=== PATIENT | female | born 1980 | race Caucasian/White ===

== ENCOUNTER 2018-10-16 07:48 | Inpatient (IN) | payer BC ==
[2018-10-16] MEDS ORDERED: Buffered Lidocaine 1% SYRIN* 1 ML/SYRINGE INTRADERM ONE (08:11)
[2018-10-16] MEDS ORDERED: Lactated Ringers 1000 ML Bag* 1,000 ML IV ONE ×2 (08:11→14:12)
[2018-10-16 08:59] LABS: ABS Eosinophils 0.1 10^3/ul (0-0.6); ABS Lymphocytes 1.3 10^3/ul (1.0-4.8); ABS Monocytes 0.5 10^3/ul (0-0.8); ABS Neutrophils 6.3 10^3/ul (1.5-7.7); Eosinophil % 0.7 %; Hematocrit 35 % (35-47); Hemoglobin 12.1 g/dL (12.0-16.0); Lymphocyte % 15.9 %; Mean Corpuscular HGB Conc 34 g/dL (31-36); Mean Corpuscular Hemoglobin 28 pg (27-31); Mean Corpuscular Volume 80 fL (80-97); Mean Platelet Volume 9.9 fL (7.4-10.4); Nucleated Red Blood Cells % 0.1; Platelet Count 153 10^3/uL (150-450); Red Blood Count 4.39 10^6 /uL (3.70-4.87); Red Cell Distribution Width 17 % (10-15); White Blood Count 8.2 10^3/uL (3.5-10.8)
[2018-10-16] MEDS ORDERED: Lactated Ringers 1000 ML Bag* 1,000 ML IV SCH ×3 (09:00→23:45)
[2018-10-16] MEDS ORDERED: Oxytocin in LR* 20 UNITS/1,000 ML BAG IVPB SCH ×2 (09:00→23:45)
[2018-10-16 09:22] LABS: Urine Benzodiazepine Screen None Detected (None Detect); Urine Opiates Screen None Detected (None Detect)
[2018-10-16] MEDS ORDERED: Penicillin G Potassium IV* 5,000,000 UNITS in NS 0.9% 100 ML* 100 ML IVPB ONE (10:23)
--- NOTE | 2018-10-16 10:30 | HP ---
General Information - Reason for Visit preeclampsia / twins 37 weeks - General Information Maternal Age: 38 Grav: 3 Para: 0 SAB: 2 IEA: 0 Estimated Due Date: 11/06/18 Determined By: Early Ultrasound Maternal Blood Type and Rh: O Positive - Results this Serology/RPR Result: Non-Reactive Rubella Result: Non-Immune HBsAg Result: Negative HIV Result: Negative GBS Culture Result: Positive Past Medical History Delivery History: See Records Pertinent Past Medical History: See Records - hx of latent TB Pertinent Past Surgical History: See Records Pertinent Family History: Non-Contributory - Antepartal Records Antepartal Records: Reviewed, Complicated by: - mild preeclampsia since late August Review of Systems Constitutional: Comfortable CV Complaint: No Respiratory: Shortness of Breath: No Gastrointestinal: No Nausea/Vomiting Genitourinary: No Bleeding, No Leaking Fluid Musculoskeletal: Pressure Neurological: No Headache Movement: Normal Exam Allergies/Adverse Reactions: Allergies shellfish derived Allergy (Verified 10/16/18 08:37) Anaphylatic Shock Lab Values - Entire Visit: Laboratory Tests 10/16/18 10/16/18 10/16/18 08:41 08:41 08:41 WBC 8.2 RBC 4.39 Hgb 12.1 Hct 35 MCV 80 MCH 28 MCHC 34 RDW 17 H Plt Count 153 MPV 9.9 Neut % (Auto) 76.9 Lymph % (Auto) 15.9 [place] % (Auto) 6.0 Eos % (Auto) 0.7 Baso % (Auto) 0.5 Absolute Neuts (auto) 6.3 Absolute Lymphs (auto) 1.3 Absolute Monos (auto) 0.5 Absolute Eos (auto) 0.1 Absolute Basos (auto) 0.0 Absolute Nucleated RBC 0.0 Nucleated RBC % 0.1 Urine Opiates Screen None detected Ur Barbiturates Screen None detected Ur Phencyclidine Scrn None detected Ur Amphetamines Screen None detected U Benzodiazepines Scrn None detected Urine Cocaine Screen None detected U Cannabinoids Screen None detected Blood Type O Positive - Measurements Height: 5 ft 11.5 in Weight: 304 lb Weight in lbs: 304.808442 Body Mass Index (BMI): 41.8 Pre- Weight: 265 lb Weight Gained This : 39 lbs and 0 ozs - Exam Breast: Breast Exam Deferred Extremities: No Edema Heart: Normal Rhythm/Heart Sounds HEENT: No Significant Findings Lungs: Clear Bilaterally Rectal: Rectal Exam Deferred Reflexes: DTR 2+ Targeted Exam Findings Cervical Exam: 1cm Effacement: 80% Station: -1 Presenting Part: Vertex - B vertex by sono Membrane Status: AROM Amniotic Fluid Evaluation: Gross Rupture EFM Findings - External Monitor Findings External Monitor Findings: Accelerations Present, Variability Moderate Contractions: Irregular, Mild Assessment/Plan - Assessment twinns vtx/ vtx with mild preeclampsia at 37 weeks for induction of labor. process discussed. option of arom and pitocin discussed . questions answered. - Obstetrical Risk Factors Obstetrical Risk Factors: GBS Positive, Proteinuria, PreEclampsia - Plan Plan: Induction, Admit - Anticipate Vaginal Delivery
--- NOTE | 2018-10-16 13:06 | PN ---
Progress Note - Progress Note Date of Service: 10/16/18 Note: pt would like an epidural explained usefulness in twin delivery 2cm /90% / -1 / well engaged
[2018-10-16] MEDS ORDERED: OBEPIDURAL* 250 ML EPIDURAL ONE (13:10)
[2018-10-16] MEDS ORDERED: Sodium Citrate/Citric Acid* 15 ML UDC PO PRN (14:12)
[2018-10-16] MEDS ORDERED: Famotidine TAB* 20 MG PO PRN (14:12)
[2018-10-16] MEDS ORDERED: Lactated Ringers 1000 ML Bag* 500 ML IV PRN ×2 (14:12)
[2018-10-16] MEDS ORDERED: Phenylephrine 40 MCG/ML SYRINGE IV PUSH PRN ×2 (14:12)
[2018-10-16] MEDS ORDERED: OBEPIDURAL* 250 ML EPIDURAL SCH (15:00)
[2018-10-16] MEDS: Penicillin G Potassium IV* 2,500,000 UNITS in NS 0.9% 100 ML* 100 ML IVPB SCH ×2 (15:24→19:20)
[2018-10-16] MEDS ORDERED: Dibucaine 1% 28.35 GM TUBE PR PRN (23:17)
[2018-10-16] MEDS ORDERED: Glycerin ADULT SUPP PR PRN (23:17)
[2018-10-16] MEDS ORDERED: Misoprostol TAB* 200 MCG PR ONE (23:17)
[2018-10-16] MEDS ORDERED: Witch Hazel PAD* JAR TOPICAL PRN (23:17)
[2018-10-16] MEDS ORDERED: Measles, Mumps,Rubella VACC* 0.5 ML/VIAL SUBCUT ONE (23:24)
[2018-10-16] MEDS ORDERED: Lidocaine 1% INJ* 10 MG/ML 30 ML SDV ONE (23:25)
[2018-10-17] MEDS: Penicillin G Potassium IV* 2,500,000 UNITS in NS 0.9% 100 ML* 100 ML IVPB SCH (00:22)
[2018-10-17] MEDS: Acetaminophen TAB* 325 MG PO PRN ×3 (00:46→23:23)
[2018-10-17] MEDS: Ibuprofen TAB* 600 MG PO PRN ×4 (00:46→20:21)
[2018-10-17 06:34] LABS: ABS Basophils 0.1 10^3/ul (0-0.2); ABS Lymphocytes 1.2 10^3/ul (1.0-4.8); ABS Monocytes 0.9 10^3/ul (0-0.8); ABS Neutrophils 13.8 10^3/ul (1.5-7.7); Eosinophil % 0.1 %; Hematocrit 26 % (35-47); Hemoglobin 8.8 g/dL (12.0-16.0); Lymphocyte % 7.5 %; Mean Corpuscular HGB Conc 34 g/dL (31-36); Mean Corpuscular Hemoglobin 27 pg (27-31); Mean Corpuscular Volume 80 fL (80-97); Mean Platelet Volume 10.3 fL (7.4-10.4); Platelet Count 113 10^3/uL (150-450); Red Cell Distribution Width 16 % (10-15); White Blood Count 15.9 10^3/uL (3.5-10.8)
[2018-10-17] MEDS ORDERED: Simethicone TAB* 80 MG TAB.CHEW PO SCH (08:30)
[2018-10-17] MEDS: Ferrous Gluconate TAB* 324 MG TAB PO SCH ×2 (10:10→20:21)
[2018-10-17] MEDS: Docusate CAP* 100 MG PO SCH ×3 (10:10→20:21)
--- NOTE | 2018-10-17 10:23 | PN ---
Progress Note - Progress Note Date of Service: 10/17/18 - PPD#1 s/p twin vaginal delivery Note: Patient is PPD#1 s/p twin vertex, vertex vaginal delivery with 2nd degree vaginal laceration. She was induced at 37 weeks for mild preeclampsia. She feels well. She is tolerating regular diet. She is voiding and had Bowel movement without difficulty. Her vaginal bleeding has slowed. Her pain is well controlled. Vital Signs: Temp Pulse Resp BP Pulse Ox 97.7 F 63 17 122/74 98 10/17/18 08:04 10/17/18 08:04 10/17/18 08:24 10/17/18 08:04 10/17/18 08:04 Fundus firm, nontender lochia normal extremities 1+edema, nontender Laboratory Results - last 24 hr 10/16/18 10/17/18 08:41 06:25 WBC 15.9 H RBC 3.30 L Hgb 8.8 L Hct 26 L MCV 80 MCH 27 MCHC 34 RDW 16 H Plt Count 113 L MPV 10.3 Neut % (Auto) 86.4 Lymph % (Auto) 7.5 Page % (Auto) 5.5 Eos % (Auto) 0.1 Baso % (Auto) 0.5 Absolute Neuts (auto) 13.8 H Absolute Lymphs (auto) 1.2 Absolute Monos (auto) 0.9 H Absolute Eos (auto) 0.0 Absolute Basos (auto) 0.1 Absolute Nucleated RBC 0.0 Nucleated RBC % 0.0 Antibody Screen Negative Assessment: PPD#1 s/p twin vaginal delivery, mild anemia, maternal blood type Rh positive Plan: continue supportive care, iron supplementation. Maricarmen Saab MD
[2018-10-18] MEDS: Ibuprofen TAB* 600 MG PO PRN ×2 (03:40→09:53)
[2018-10-18] MEDS: Acetaminophen TAB* 325 MG PO PRN (06:39)
[2018-10-18] MEDS: Ferrous Gluconate TAB* 324 MG TAB PO SCH (08:09)
[2018-10-18] MEDS: Docusate CAP* 100 MG PO SCH (08:10)
[2018-10-18 09:03] VITALS: BP 130/60
--- NOTE | 2018-10-19 00:50 | PROCNOTE ---
[facility] OB: Delivery Note - Delivery A Date of : 10/16/18 Time of : 22:38 Sex: Male - x 2 Gestational Age in Weeks and Days at Delivery: 37 Weeks and 0 Days Delivery Method: Spontaneous Vaginal Labor: Induced Did Patient attempt ?: N/A, No Previous Amniotic Fluid: Clear Estimated Blood Loss: 200 Anesthesia/Analgesia: CEI for Labor Delivered By: Mando Rogers - Nursery Level of Nursery: Regular/Bedside - Perineum Perineal Injury: 2nd Degree - Events Delivery Events of Note: Pitocin During Labor, Full Course of Antibiotics - Risk for Falls Delivered OB Patient- Risk for Falls: Low Hematocrit (<29) Fall Risk: Patient is at High Risk for Falls
== END 2018-10-18 13:25 | disposition home or self-care (01) | DRG 560 ==
LOC: MCHOBOUT 07:48 → MCHOB 08:34
PROVIDERS: ADMIT Obstetrics & Gynecology; ATTEND Obstetrics & Gynecology
PROC: 10907ZC Drainage of Amniotic Fluid, Therapeutic from Products of Conception, Via Natural or Artificial Opening (ICD-10-PCS; principal; 2018-10-16)
PROC: 3E033VJ Introduction of Other Hormone into Peripheral Vein, Percutaneous Approach (ICD-10-PCS; 2018-10-16)
PROC: 10E0XZZ Delivery of Products of Conception, External Approach (ICD-10-PCS; 2018-10-16)
PROC: 0KQM0ZZ Repair Perineum Muscle, Open Approach (ICD-10-PCS; 2018-10-16)
PROC: 4A1HXCZ Monitoring of Products of Conception, Cardiac Rate, External Approach (ICD-10-PCS; 2018-10-16)
DX: O14.04 Mild to moderate pre-eclampsia, complicating childbirth (principal); Z37.2 Twins, both liveborn; O99.824 Streptococcus B carrier state complicating childbirth; R76.11 Nonspecific reaction to tuberculin skin test without active tuberculosis; O75.89 Other specified complications of labor and delivery; O70.1 Second degree perineal laceration during delivery; O99.02 Anemia complicating childbirth; O30.003 Twin pregnancy, unspecified number of placenta and unspecified number of amniotic sacs, third trimester; Z3A.37 37 weeks gestation of pregnancy; Z91.013 Allergy to seafood
CPT/HCPCS: 36415; 76815; 80307; 85025; 86850; 86900; 86901; 90707; A9270-GY; J2540